=== PATIENT | female | born 1960 | race African-American/Black ===

== ENCOUNTER 2016-05-06 10:12 | Emergency (ER) | payer MEDICARE, MEDICAID ==
[~2016-05-06] VITALS: Ht 172.7 cm; Wt 77.0 kg
[~2016-05-06 10:12] MED LIST: METF500T4 PO
[2016-05-06] MEDS ORDERED: SODIUM CHLORIDE 0.9% 1,000 ML IV ONE (12:30)
[2016-05-06 12:37] LABS: BASOPHILS % 1.1 % (0.0-2.0); EOSINOPHILS % 0.9 % (0.0-5.0); HEMATOCRIT. 33.1 % (36.0-48.0); HEMOGLOBIN. 10.8 g/dL (12.0-16.0); LYMPHOCYTES % 16.6 % (20.0-50.0); MEAN CORPUSCULAR HEMOGLOBIN 26.8 pg (28.0-32.0); MEAN CORPUSCULAR HGB CONC 32.6 g/dL (31.0-37.0); MEAN CORPUSCULAR VOLUME 82.3 fL (81.0-99.0); MEAN PLATELET VOLUME 5.8 fl (7.4-10.4); MONOCYTES % 8.3 % (2.0-8.0); NEUTROPHILS % 73.1 % (40.0-76.0); PLATELET 454 x1000/uL (130-400); RED BLOOD CELL COUNT 4.02 mill/uL (4.2-5.4); RED CELL DISTRIBUTION WIDTH 14.9 % (11.6-14.6); WHITE BLOOD COUNT 9.3 x1000/uL (4.5-11.0)
[2016-05-06 12:43] LABS: CLARITY URINE CLOUDY (CLEAR); COLOR URINE DARK YELLOW (YELLOW); GLUCOSE URINE NEGATIVE (NEGATIVE); KETONES URINE 1+ (NEGATIVE); LEUKOCYTE ESTERASE URINE 2+ (NEGATIVE); NITRITE URINE POSITIVE (NEGATIVE); OCCULT BLOOD URINE 2+ (NEGATIVE); PROTEIN URINE 2+ (NEGATIVE); SPECIFIC GRAVITY URINE 1.026 (1.005-1.030)
[2016-05-06 12:47] LABS: ANION GAP 16; CALCIUM 9.4 mg/dL (8.5-10.1); CARBON DIOXIDE 24 mEq/L (21-32); CHLORIDE 107 mEq/L (98-107); INDEX HEMOLYSI 1 (1-3); INDEX ICTERIC 1 (1-4); INDEX LIPEMIC 1 (1-3); UREA NITROGEN BLOOD 30 mg/dL (7-21)
[2016-05-06 12:55] LABS: SQUAMOUS EPITHELIAL CELL URINE 2+ /lpf (RARE/1+)
[2016-05-06 12:56] LABS: BACTERIA URINE 3+; WBC URINE TNTC /hpf (0-2)
[2016-05-06 12:57] LABS: RBC URINE 0-2 /hpf (0-2)
[2016-05-06 12:58] LABS: ACETAMINOPHEN < 2 ug/mL (10-30); ALANINE AMINOTRANSFERASE 30 IU/L (13-61); ETHANOL BLOOD < 10 mg/dL; THYROID STIMULATING HORMONE 0.45 uIU/mL (0.36-3.74); eGFR > 60 mL/min (>60)
[2016-05-06 12:58] LABS: HYALINE CASTS URINE 0-5 /lpf
[2016-05-06 13:03] LABS: *AMPHETAMINES SCREEN URINE NEGATIVE (NEGATIVE); *BARBITURATES SCREEN URINE NEGATIVE (NEGATIVE); *BENZODIAZEPINES SCREEN URINE NEGATIVE (NEGATIVE); *COCAINE SCREEN URINE NEGATIVE (NEGATIVE); CANNABINOID URINE SCREEN NEGATIVE (NEGATIVE); ECSTASY MDMA SCREEN URINE NEGATIVE (NEGATIVE); METHADONE URINE SCREEN NEGATIVE (NEGATIVE); OPIATES URINE SCREEN NEGATIVE (NEGATIVE); PHENCYCLIDINE URINE SCREEN NEGATIVE (NEGATIVE)
[2016-05-06 13:34] LABS: HCG SCREEN NEGATIVE
[2016-05-06] MEDS ORDERED: CEFTRIAXONE 1 G PREMIX 50 ML IV ONE (14:00)
[2016-05-06] MEDS ORDERED: LORAZEPAM 1MG TABLET PO ONE (15:30)
[2016-05-06] MEDS ORDERED: LORAZEPAM 2MG/ML CPJ IM PRN (16:30)
[2016-05-06 18:00] VITALS: BP 155/79
== END 2016-05-06 18:30 | disposition home or self-care (01) ==
LOC: ER 11:26
DX: F31.9 Bipolar disorder, unspecified (principal); F91.8 Other conduct disorders; Z91.14 Patient's other noncompliance with medication regimen; N39.0 Urinary tract infection, site not specified; E11.9 Type 2 diabetes mellitus without complications; I10 Essential (primary) hypertension; F17.210 Nicotine dependence, cigarettes, uncomplicated
CPT/HCPCS: 36415; 80053; 80305; 80329; 81001; 82962; 84443; 84703; 85025; 96361; 96365; 96372; 99284; G0482; J0696; J2060; J7030; 80307

== ENCOUNTER 2019-02-19 09:53 | Emergency (ER) | payer MEDICARE, MEDICAID ==
[~2019-02-19] VITALS: Ht 172.7 cm; Wt 73.0 kg
[~2019-02-19 09:53] MED LIST changes: +METF-414 PO; -METF500T4 PO
[2019-02-19 09:56] VITALS: BP 164/100
== END 2019-02-19 21:10 | disposition left against medical advice (07) ==
LOC: ER 09:53
DX: R06.02 Shortness of breath (principal); Z53.21 Procedure and treatment not carried out due to patient leaving prior to being seen by health care provider
CPT/HCPCS: 93005